=== PATIENT | male | born 1960 | race Caucasian/White ===

== ENCOUNTER 2017-07-22 17:07 | Inpatient (IN) | payer OTHER ==
[~2017-07-22] VITALS: Ht 190.5 cm; Wt 170.2 kg
[2017-07-22 17:41] VITALS: BP 156/109
[2017-07-22] MEDS ORDERED: LIPITOR40 MG PO (18:02)
[2017-07-22] MEDS ORDERED: VICTOZA 2-0.6 MG/0.1 SQ (18:02)
[2017-07-22] MEDS ORDERED: DILTIAZEM60 MG PO (18:03)
[2017-07-22] MEDS ORDERED: METFORMIN1000 MG PO (18:03)
[2017-07-22] MEDS ORDERED: FLUOXETINE40 MG PO (18:04)
[2017-07-22] MEDS ORDERED: WARFARIN SODIUM6 MG PO (18:04)
[2017-07-22] MEDS ORDERED: HYDR25T PO (18:05)
[2017-07-22] MEDS ORDERED: LISINOPRIL20 MG PO (18:05)
[2017-07-22] MEDS ORDERED: VITAMIN D22000 UNIT PO (18:06)
[2017-07-22] MEDS ORDERED: VITAMIN B121000 MC1 PO (18:07)
[2017-07-22] MEDS ORDERED: SYMB80 INH (18:07)
[2017-07-22 19:19] LABS: BASO % 0.5 % (0.0-1.0); EOS % 0.5 % (1.0-4.0); HEMATOCRIT 45.4 % (42.0-52.0); HEMOGLOBIN 15.1 g/dl (14.0-18.0); LYMPH # 2.2 10*3/uL (1.3-4.4); LYMPH % 25.2 % (27.0-41.0); MEAN CELL VOLUME 99.1 fl (80.0-94.0); MEAN CORPUSCULAR HGB CONC 33.3 g/dl (33.0-37.0); MEAN PLATELET VOLUME 10.1 fl (9.6-12.3); MONO # 1.1 10*3/uL (0.1-1.0); MONO % 12.2 % (3.0-9.0); NEUT # 5.3 10*3/uL (2.3-7.9); NEUT % 61.5 % (47.0-73.0); PLATELET COUNT AUTOMATED 186 10*3/uL (130-400); RED BLOOD COUNT 4.58 10*6/uL (4.50-5.90); RED CELL DISTRI WIDTH 13.8 % (0-14.5); WHITE BLOOD COUNT 8.6 10*3/uL (4.8-10.8)
[2017-07-22 19:20] LABS: BILIRUBIN NEGATIVE (NEGATIVE); BLOOD 3+ (NEGATIVE); CLARITY SL CLOUDY (CLEAR); COLOR YELLOW (YELLOW); GLUCOSE NEGATIVE (NEGATIVE); KETONE NEGATIVE (NEGATIVE); LEUKO ESTERASE NEGATIVE (NEGATIVE); NITRITE NEGATIVE (NEGATIVE); PH 5.5 (5.0-9.0); UROBILINOGEN 0.2 E.U./dl (0.2-1.0)
[2017-07-22 19:24] LABS: BACTERIA 1+; EPITHELIAL CELLS 0-2; RBC TNTC rbc/hpf (0-2); WBC 0-2 wbc/hpf (0-5)
[2017-07-22 19:27] LABS: ACT PARTIAL THROMBO TIME 29.6 SECONDS (20.8-31.5)
[2017-07-22 19:27] LABS: URINE AMPHETAMINES < 1000 (1000ng/ml); URINE BARBITURATES < 200 (200ng/ml); URINE BENZODIAZEPINES < 200 (200ng/ml); URINE CANNABINOIDS (THC) < 50 (50ng/ml); URINE COCAINE < 300 (300ng/ml); URINE METHADONE < 300 (300ng/ml); URINE OPIATES < 300 (300ng/ml)
[2017-07-22 19:28] LABS: URINE PHENCYCLIDINE < 25 (25ng/ml)
[2017-07-22 19:35] LABS: ALKALINE PHOSPHATASE 62 U/L (45-117); BUN 19 mg/dl (7-24); CHLORIDE 99 mmol/L (98-107); CREATININE 1.23 mg/dL (0.70-1.30); ETHYL ALCOHOL < 3.0 mg/dl (<3); POTASSIUM 3.8 mmol/L (3.5-5.1); SGOT/AST 45 IU/L (3-35); SGPT/ALT 58 U/L (12-78); SODIUM 138 mmol/L (136-145); TOTAL PROTEIN 7.6 gm/dL (6.4-8.2)
[2017-07-22 20:00] VITALS: BP 142/89
[2017-07-22 20:50] VITALS: BP 142/89
[2017-07-23] VITALS: BP 109/64
[2017-07-23 08:00] VITALS: BP 130/74
[2017-07-23 09:15] LABS: INTERNATIONAL NORM RATIO 1.7 (2.0-3.5)
[2017-07-23 12:00] VITALS: BP 119/84
[2017-07-23 16:00] VITALS: BP 113/67
[2017-07-23 20:00] VITALS: BP 116/95
[2017-07-24 00:03] VITALS: BP 117/68
[2017-07-24 08:00] VITALS: BP 115/66
[2017-07-24 08:18] LABS: INTERNATIONAL NORM RATIO 1.7 (2.0-3.5)
[2017-07-24 12:00] VITALS: BP 107/76
[2017-07-24 16:00] VITALS: BP 119/68
[2017-07-24 20:00] VITALS: BP 101/62
[2017-07-25 00:09] VITALS: BP 100/57
[2017-07-25 06:20] LABS: BASO % 0.7 % (0.0-1.0); EOS # 0.1 10*3/uL (0.0-0.4); EOS % 1.7 % (1.0-4.0); HEMATOCRIT 41.3 % (42.0-52.0); HEMOGLOBIN 13.5 g/dl (14.0-18.0); LYMPH # 1.5 10*3/uL (1.3-4.4); LYMPH % 25.8 % (27.0-41.0); MEAN CORPUSCULAR HGB 33.3 pg (27.0-31.0); MEAN CORPUSCULAR HGB CONC 32.7 g/dl (33.0-37.0); MONO # 0.7 10*3/uL (0.1-1.0); NEUT # 3.5 10*3/uL (2.3-7.9); NEUT % 59.5 % (47.0-73.0); PLATELET COUNT AUTOMATED 161 10*3/uL (130-400); RED BLOOD COUNT 4.05 10*6/uL (4.50-5.90); RED CELL DISTRI WIDTH 13.5 % (0-14.5); WHITE BLOOD COUNT 5.9 10*3/uL (4.8-10.8)
[2017-07-25 06:24] LABS: CREATININE 1.12 mg/dL (0.70-1.30)
[2017-07-25 06:43] LABS: INTERNATIONAL NORM RATIO 1.7 (2.0-3.5)
[2017-07-25 08:00] VITALS: BP 114/54
[2017-07-25] MEDS ORDERED: COUMADIN0.5 MG PO (09:30)
[2017-07-25] MEDS ORDERED: ATARAX,VISTARIL50 MG PO (09:30)
== END 2017-07-25 16:08 | disposition home or self-care (01) | DRG 897 ==
LOC: ED 17:07 → 4E 19:58 → EDHOLD 19:58 → 4E 20:34
PROVIDERS: Internal Medicine; Physician Assistant
DX: F10.230 Alcohol dependence with withdrawal, uncomplicated (principal); R65.10 Systemic inflammatory response syndrome (SIRS) of non-infectious origin without acute organ dysfunction; E11.69 Type 2 diabetes mellitus with other specified complication; F33.9 Major depressive disorder, recurrent, unspecified; E66.01 Morbid (severe) obesity due to excess calories; Z68.42 Body mass index [BMI] 45.0-49.9, adult; I48.2 Chronic atrial fibrillation; R82.71 Bacteriuria; I10 Essential (primary) hypertension; D75.89 Other specified diseases of blood and blood-forming organs; D72.810 Lymphocytopenia; F17.200 Nicotine dependence, unspecified, uncomplicated; G47.30 Sleep apnea, unspecified; E78.5 Hyperlipidemia, unspecified; J44.9 Chronic obstructive pulmonary disease, unspecified; M19.90 Unspecified osteoarthritis, unspecified site; Z71.6 Tobacco abuse counseling; Z83.3 Family history of diabetes mellitus; Z80.1 Family history of malignant neoplasm of trachea, bronchus and lung; Z79.899 Other long term (current) drug therapy; Z79.84 Long term (current) use of oral hypoglycemic drugs